=== PATIENT | female | born 1935 | race Caucasian/White ===

== ENCOUNTER 2016-09-02 19:42 | Inpatient (IN) | payer OTHER ==
[~2016-09-02] VITALS: Ht 152.4 cm; Wt 61.8 kg
[~2016-09-02 19:42] MED LIST: AMLO5TAB2 PO; BUDE10.2 INH; CEFD300C37 PO; FAMO40TA4 PO; FURO20TA3 PO; GUAI200T3 PO; IPRA3AMP INH; LEVO100T5 PO; LOSA100T6 PO; METR500T4 PO; PANT20TA3 PO; PRED10TA PO
[2016-09-02] MEDS ORDERED: ETOMIDATE 20 MG/10 ML IV ONE (20:00)
[2016-09-02] MEDS ORDERED: SUCCINYLCHOLINE 20 MG/ML, 10ML IVPush ONE (20:00)
[2016-09-02] MEDS ORDERED: SODIUM CHLORIDE 0.9% 1,000ML IVBOLUS ONE (20:00)
[2016-09-02] MEDS ORDERED: PROPOFOL 100 ML IV PRN (20:00)
[2016-09-02] MEDS ORDERED: SODIUM CHLORIDE FLUSH 10ML SYR IVF ONE (20:00)
[2016-09-02] MEDS ORDERED: MIDAZOLAM 1 MG/ML, 2ML IV ONE (20:00)
[2016-09-02] MEDS ORDERED: ETOMIDATE 40 MG/20 ML ONE (20:01)
[2016-09-02] MEDS ORDERED: MIDAZOLAM 1 MG/ML, 5ML ONE (20:01)
[2016-09-02] MEDS ORDERED: SUCCINYLCHOLINE 20 MG/ML, 10ML ONE (20:01)
[2016-09-02] MEDS ORDERED: PROPOFOL 10 MG/ML, 20ML ONE (20:01)
[2016-09-02] MEDS ORDERED: AMOX-291 PO (20:43)
[2016-09-02 20:49] LABS: ASPARTATE AMINO TRANSFERASE 17 U/L (15-37); BLOOD UREA NITROGEN 8 mg/dL (7-18)
[2016-09-02 20:54] LABS: IS PT STATUS REG ER OR PRE ER? YES
[2016-09-02 20:58] LABS: ABG COLLECTION SITE LEFT RADIAL; COLLATERAL CIRCULATION TESTING NORMAL
[2016-09-02 21:15] VITALS: BP 108/55
[2016-09-02] MEDS ORDERED: DOCUSATE 100 MG CAPSULE PO PRN (22:00)
[2016-09-02] MEDS ORDERED: POLYETHYLENE GLYCOL 17 GM PACKET PO PRN (22:00)
[2016-09-02] MEDS ORDERED: ONDANSETRON 2MG/ML, 2ML IVPush PRN (22:00)
[2016-09-02] MEDS ORDERED: hydrALAzine 20 MG/ML, 1ML IVPush PRN (22:00)
[2016-09-02] MEDS ORDERED: FAMOTIDINE 20 MG/2 ML IVPush SCH (22:00)
[2016-09-02] MEDS ORDERED: BISACODYL 10 MG SUPP PR PRN (22:00)
[2016-09-02] MEDS ORDERED: ENALAPRILAT 1.25 MG/ML, 2ML IVPush PRN ×2 (22:00→22:03)
[2016-09-02] MEDS ORDERED: morphine SULFATE 10 MG/ML, 1ML IVPush PRN (22:00)
[2016-09-02] MEDS: CEFTRIAXONE PMX 1GM/50ML 50 ML IV SCH (22:21)
[2016-09-02] MEDS: HEPARIN 5,000 UNITS/ML, 1ML SQ SCH (22:21)
[2016-09-02] MEDS: SODIUM CHLORIDE 0.9% 1,000 ML IV SCH (22:21)
[2016-09-02] MEDS: ALBUTEROL/IPRATROPIUM 2.5MG/0.5MG, 3 ML NPPB SCH (22:50)
[2016-09-02] MEDS: DOXYCYCLINE 100 MG in DEXTROSE 5% 250 ML IV SCH (23:24)
[2016-09-03] MEDS: PROPOFOL 100 ML IV PRN ×4 (01:38→22:44)
[2016-09-03] MEDS ORDERED: SODIUM CHLORIDE 0.9% 1,000ML IVBOLUS ONE ×2 (02:00)
[2016-09-03] MEDS: ALBUTEROL/IPRATROPIUM 2.5MG/0.5MG, 3 ML NPPB SCH ×2 (03:00→06:44)
[2016-09-03] MEDS ORDERED: PROPOFOL 100 ML IV PRN (03:45)
[2016-09-03] MEDS: methylPREDNISolone SOD SUCC 125 MG/2 ML IVPush SCH ×4 (03:52→20:41)
[2016-09-03 04:00] VITALS: BP 107/52
[2016-09-03] MEDS ORDERED: SENNA/DOCUSATE TABLET NG PRN (04:00)
[2016-09-03] MEDS ORDERED: PHARMACY MAY ADJ FOR RENAL FX MC SCH (04:00)
[2016-09-03] MEDS ORDERED: BISACODYL 10 MG SUPP PR PRN (04:00)
[2016-09-03] MEDS ORDERED: LACTULOSE 20 GM/30 ML UDC NG PRN (04:00)
[2016-09-03] MEDS: ALBUTEROL/IPRATROPIUM 2.5MG/0.5MG, 3 ML INLINE SCH ×5 (04:00→22:00)
[2016-09-03] MEDS ORDERED: LIDOCAINE-MPF 1%, 2ML ENDO PRN (04:00)
[2016-09-03] MEDS ORDERED: SENNOSIDES 8.8 MG/5 ML ORAL SOL NG PRN (04:00)
[2016-09-03] MEDS ORDERED: FENTANYL PF 100 MCG/2ML IVPush PRN (04:00)
[2016-09-03 04:38] LABS: ABG COLLECTION SITE RIGHT RADIAL; COLLATERAL CIRCULATION TESTING NORMAL
[2016-09-03 05:04] LABS: ASPARTATE AMINO TRANSFERASE 23 U/L (15-37); BLOOD UREA NITROGEN 7 mg/dL (7-18)
[2016-09-03] MEDS: FAMOTIDINE 20 MG/2 ML IV SCH ×2 (05:33→15:48)
[2016-09-03] MEDS: HEPARIN 5,000 UNITS/ML, 1ML SQ SCH ×3 (05:34→21:49)
[2016-09-03 06:32] LABS: IS PT STATUS REG ER OR PRE ER? NO
[2016-09-03] MEDS: SODIUM CHLORIDE 0.9% 1,000 ML IV SCH ×2 (07:53→09:54)
[2016-09-03] MEDS: LOSARTAN 50MG TABLET PO SCH (09:00)
[2016-09-03] MEDS: AMLODIPINE 5 MG TABLET PO SCH (09:00)
[2016-09-03] MEDS: LEVOTHYROXINE 100 MCG TABLET PO SCH (09:55)
[2016-09-03] MEDS: DOXYCYCLINE 100 MG in DEXTROSE 5% 250 ML IV SCH ×2 (10:41→22:43)
[2016-09-03 12:03] LABS: IS PT STATUS REG ER OR PRE ER? NO
[2016-09-03] MEDS ORDERED: MAGNESIUM SULFATE PMX 2GM/50ML 50 ML IV ONE (16:00)
[2016-09-03] MEDS: CEFTRIAXONE PMX 1GM/50ML 50 ML IV SCH (21:49)
[2016-09-04] MEDS: ALBUTEROL/IPRATROPIUM 2.5MG/0.5MG, 3 ML INLINE SCH ×2 (01:55→06:00)
[2016-09-04] MEDS: methylPREDNISolone SOD SUCC 125 MG/2 ML IVPush SCH ×4 (02:35→21:16)
[2016-09-04 04:00] VITALS: BP_SYST 106; BP_SYST 140; BP_DIAS 61; BP_DIAS 84
[2016-09-04 04:42] LABS: ABG COLLECTION SITE LEFT RADIAL; COLLATERAL CIRCULATION TESTING NORMAL
[2016-09-04] MEDS: FAMOTIDINE 20 MG/2 ML IV SCH (04:44)
[2016-09-04 04:51] LABS: BLOOD UREA NITROGEN 9 mg/dL (7-18)
[2016-09-04 04:55] LABS: ASPARTATE AMINO TRANSFERASE 29 U/L (15-37)
[2016-09-04] MEDS: HEPARIN 5,000 UNITS/ML, 1ML SQ SCH ×3 (05:30→21:16)
[2016-09-04] MEDS ORDERED: FUROSEMIDE 20 MG/2 ML IV ONE (08:30)
[2016-09-04] MEDS ORDERED: POTASSIUM CHLORIDE 20 MEQ PACKET NG ONE (08:30)
[2016-09-04] MEDS: DOXYCYCLINE 100 MG in DEXTROSE 5% 250 ML IV SCH ×2 (10:13→23:23)
[2016-09-04] MEDS: LOSARTAN 50MG TABLET PO SCH (10:13)
[2016-09-04] MEDS: LEVOTHYROXINE 100 MCG TABLET PO SCH (10:14)
[2016-09-04] MEDS: AMLODIPINE 5 MG TABLET PO SCH (10:15)
[2016-09-04] MEDS: ALBUTEROL/IPRATROPIUM 2.5MG/0.5MG, 3 ML NPPB SCH ×3 (14:00→22:00)
[2016-09-04] MEDS ORDERED: FAMOTIDINE 20 MG TABLET PO SCH (21:00)
[2016-09-04] MEDS: CEFTRIAXONE PMX 1GM/50ML 50 ML IV SCH (21:16)
[2016-09-05] MEDS: FAMOTIDINE 20 MG/2 ML IV SCH (01:27)
[2016-09-05] MEDS: ALBUTEROL/IPRATROPIUM 2.5MG/0.5MG, 3 ML NPPB SCH ×4 (02:00→20:34)
[2016-09-05] MEDS: methylPREDNISolone SOD SUCC 125 MG/2 ML IVPush SCH ×4 (03:22→20:20)
[2016-09-05 04:13] VITALS: BP 146/60
[2016-09-05 04:26] LABS: ABG COLLECTION SITE RIGHT RADIAL; COLLATERAL CIRCULATION TESTING NORMAL
[2016-09-05 04:35] LABS: BLOOD UREA NITROGEN 15 mg/dL (7-18)
[2016-09-05] MEDS: HEPARIN 5,000 UNITS/ML, 1ML SQ SCH ×2 (05:59→20:20)
[2016-09-05] MEDS: AMLODIPINE 5 MG TABLET PO SCH (08:32)
[2016-09-05] MEDS: LOSARTAN 50MG TABLET PO SCH (08:33)
[2016-09-05] MEDS: LEVOTHYROXINE 100 MCG TABLET PO SCH (08:33)
[2016-09-05] MEDS: DOXYCYCLINE 100 MG in DEXTROSE 5% 250 ML IV SCH ×2 (10:58→22:35)
[2016-09-05 13:02] VITALS: BP 162/79
[2016-09-05 20:04] VITALS: BP 165/95
[2016-09-05] MEDS: CEFTRIAXONE PMX 1GM/50ML 50 ML IV SCH (21:45)
[2016-09-06 01:21] VITALS: BP 165/86
[2016-09-06] MEDS: methylPREDNISolone SOD SUCC 125 MG/2 ML IVPush SCH ×4 (02:05→22:36)
[2016-09-06] MEDS: ALBUTEROL/IPRATROPIUM 2.5MG/0.5MG, 3 ML NPPB PRN (02:51)
[2016-09-06 04:34] LABS: ABG COLLECTION SITE LEFT RADIAL; COLLATERAL CIRCULATION TESTING NORMAL
[2016-09-06 04:46] LABS: BLOOD UREA NITROGEN 16 mg/dL (7-18)
[2016-09-06] MEDS: HEPARIN 5,000 UNITS/ML, 1ML SQ SCH ×3 (04:57→22:35)
[2016-09-06] MEDS: ALBUTEROL/IPRATROPIUM 2.5MG/0.5MG, 3 ML NPPB SCH ×4 (06:18→19:44)
[2016-09-06 07:29] VITALS: BP 169/73
[2016-09-06] MEDS: LEVOTHYROXINE 100 MCG TABLET PO SCH (07:44)
[2016-09-06] MEDS: AMLODIPINE 5 MG TABLET PO SCH (07:48)
[2016-09-06] MEDS: LOSARTAN 50MG TABLET PO SCH (07:48)
[2016-09-06] MEDS: DOXYCYCLINE 100 MG in DEXTROSE 5% 250 ML IV SCH ×2 (10:32→23:57)
[2016-09-06 12:52] VITALS: BP 163/75
[2016-09-06 20:09] VITALS: BP 157/79
[2016-09-06] MEDS: CEFTRIAXONE PMX 1GM/50ML 50 ML IV SCH (22:35)
[2016-09-07] MEDS: ALBUTEROL/IPRATROPIUM 2.5MG/0.5MG, 3 ML NPPB PRN (01:02)
[2016-09-07 01:25] VITALS: BP 158/86
[2016-09-07] MEDS: methylPREDNISolone SOD SUCC 125 MG/2 ML IVPush SCH ×3 (03:28→16:27)
[2016-09-07 05:09] LABS: BLOOD UREA NITROGEN 18 mg/dL (7-18)
[2016-09-07] MEDS: HEPARIN 5,000 UNITS/ML, 1ML SQ SCH ×2 (06:27→16:27)
[2016-09-07 06:45] VITALS: BP 179/77
[2016-09-07] MEDS: ALBUTEROL/IPRATROPIUM 2.5MG/0.5MG, 3 ML NPPB SCH ×3 (07:20→15:55)
[2016-09-07] MEDS: AMLODIPINE 5 MG TABLET PO SCH (08:31)
[2016-09-07] MEDS: LOSARTAN 50MG TABLET PO SCH (08:31)
[2016-09-07] MEDS: LEVOTHYROXINE 100 MCG TABLET PO SCH (08:31)
[2016-09-07] MEDS ORDERED: AMLODIPINE 5 MG TABLET PO SCH (09:30)
[2016-09-07] MEDS: DOXYCYCLINE 100 MG in DEXTROSE 5% 250 ML IV SCH (11:15)
[2016-09-07 12:49] VITALS: BP 149/65
[2016-09-07] MEDS ORDERED: CEFD300C37 PO (14:34)
[2016-09-07] MEDS ORDERED: DOXY100T PO (14:34)
[2016-09-07] MEDS ORDERED: IPRA3AMP NPPB (14:34)
[2016-09-07] MEDS ORDERED: AMLO5TAB2 PO (14:34)
[2016-09-07] MEDS ORDERED: PRED5TAB PO (14:34)
[2016-09-07] MEDS ORDERED: POLY17PO5 PO (14:34)
[2016-09-07] MEDS ORDERED: HYDR-3342 PO (14:34)
== END 2016-09-07 19:15 | disposition home health service (06) | DRG 208 ==
LOC: ED 20:01 → EDIP 20:24 → CCU 21:05 → 3NW 09-05 11:45
PROVIDERS: ADMIT Internal Medicine; ATTEND Internal Medicine
PROC: 5A1945Z Respiratory Ventilation, 24-96 Consecutive Hours (ICD-10-PCS; principal; 2016-09-02)
PROC: 0BH17EZ Insertion of Endotracheal Airway into Trachea, Via Natural or Artificial Opening (ICD-10-PCS; 2016-09-02)
PROC: 0T9B70Z Drainage of Bladder with Drainage Device, Via Natural or Artificial Opening (ICD-10-PCS; 2016-09-02)
PROC: 5A09357 Assistance with Respiratory Ventilation, Less than 24 Consecutive Hours, Continuous Positive Airway Pressure (ICD-10-PCS; 2016-09-02)
DX: J96.21 Acute and chronic respiratory failure with hypoxia (principal); J18.9 Pneumonia, unspecified organism; E43 Unspecified severe protein-calorie malnutrition; I50.32 Chronic diastolic (congestive) heart failure; J44.1 Chronic obstructive pulmonary disease with (acute) exacerbation; J44.0 Chronic obstructive pulmonary disease with (acute) lower respiratory infection; J96.22 Acute and chronic respiratory failure with hypercapnia; E03.9 Hypothyroidism, unspecified; I07.1 Rheumatic tricuspid insufficiency; I11.0 Hypertensive heart disease with heart failure; I25.10 Atherosclerotic heart disease of native coronary artery without angina pectoris; N81.3 Complete uterovaginal prolapse; I27.2 Other secondary pulmonary hypertension; Z88.8 Allergy status to other drugs, medicaments and biological substances; Z88.1 Allergy status to other antibiotic agents; Z87.01 Personal history of pneumonia (recurrent); Z99.81 Dependence on supplemental oxygen; Z87.891 Personal history of nicotine dependence; K21.9 Gastro-esophageal reflux disease without esophagitis; Z86.73 Personal history of transient ischemic attack (TIA), and cerebral infarction without residual deficits; I25.2 Old myocardial infarction; Z90.49 Acquired absence of other specified parts of digestive tract
CPT/HCPCS: 31500; 36415; 36600; 71010; 80048; 80053; 80061; 81003; 82803; 83036; 83605; 83735; 84100; 84439; 84443; 84478; 84484; 85025; 85610; 87040; 87070; 87081; 87205; 93005; 94002; 94003; 94640; 96374; 96375; J0696; J1644; J2250; J2704; J7060; J7620; J0330; J1940; J2930; J3475; J7030; S0028

== ENCOUNTER 2018-11-30 03:08 | Inpatient (IN) | payer MEDICARE, OTHER ==
[~2018-11-30] VITALS: Ht 154.9 cm; Wt 52.5 kg
[2018-12-02 19:40] VITALS: BP 169/89
== END 2018-12-06 10:30 | disposition hospice, home (50) | DRG 193 ==
LOC: ED 05:08 → EDIP 05:09 → 3NE 10:14 → CCU 12-02 20:38
PROVIDERS: ADMIT Family Medicine; ATTEND Family Medicine
PROC: 5A09357 Assistance with Respiratory Ventilation, Less than 24 Consecutive Hours, Continuous Positive Airway Pressure (ICD-10-PCS; principal; 2018-11-30)
PROC: 5A09357 Assistance with Respiratory Ventilation, Less than 24 Consecutive Hours, Continuous Positive Airway Pressure (ICD-10-PCS; 2018-12-02)
PROC: 5A09357 Assistance with Respiratory Ventilation, Less than 24 Consecutive Hours, Continuous Positive Airway Pressure (ICD-10-PCS; 2018-12-03)
PROC: 5A09357 Assistance with Respiratory Ventilation, Less than 24 Consecutive Hours, Continuous Positive Airway Pressure (ICD-10-PCS; 2018-12-04)
PROC: 5A09357 Assistance with Respiratory Ventilation, Less than 24 Consecutive Hours, Continuous Positive Airway Pressure (ICD-10-PCS; 2018-12-05)
PROC: 5A09357 Assistance with Respiratory Ventilation, Less than 24 Consecutive Hours, Continuous Positive Airway Pressure (ICD-10-PCS; 2018-12-06)
DX: J18.9 Pneumonia, unspecified organism (principal); J96.21 Acute and chronic respiratory failure with hypoxia; J96.22 Acute and chronic respiratory failure with hypercapnia; J44.0 Chronic obstructive pulmonary disease with (acute) lower respiratory infection; J44.1 Chronic obstructive pulmonary disease with (acute) exacerbation; R64 Cachexia; I50.42 Chronic combined systolic (congestive) and diastolic (congestive) heart failure; I11.0 Hypertensive heart disease with heart failure; E03.9 Hypothyroidism, unspecified; F41.9 Anxiety disorder, unspecified; Z51.5 Encounter for palliative care; K21.9 Gastro-esophageal reflux disease without esophagitis; I25.10 Atherosclerotic heart disease of native coronary artery without angina pectoris; Y95 Nosocomial condition; J98.4 Other disorders of lung; I25.2 Old myocardial infarction; Z87.891 Personal history of nicotine dependence; Z86.73 Personal history of transient ischemic attack (TIA), and cerebral infarction without residual deficits; Z99.81 Dependence on supplemental oxygen; Z79.899 Other long term (current) drug therapy; Z90.49 Acquired absence of other specified parts of digestive tract; Z83.6 Family history of other diseases of the respiratory system; Z68.21 Body mass index [BMI] 21.0-21.9, adult
CPT/HCPCS: 36415; 36600; 71045; 80048; 80053; 82040; 82803; 83735; 83880; 84100; 84439; 84443; 84484; 85025; 87040; 87081; 93005; 93306; 94640; 94660; 96361; 96365; 96366; 96375; 99291; G0378; J0456; J1650; J2405; J2543; J3370; J7620; J7626; C9113; J2270; J2930; J3475; J7030; J7050; J7512